=== PATIENT | male | born 1965 | race Native Hawaiian/Other Pacific Islander ===

== ENCOUNTER 2017-04-24 02:22 | Emergency (ER) | payer MEDICAID ==
[~2017-04-24] VITALS: Ht 165.1 cm; Wt 59.0 kg
[2017-04-24 02:28] VITALS: BP 130/92
== END 2017-04-24 04:08 | disposition left against medical advice (07) ==
LOC: EMS 02:23
DX: M79.641 Pain in right hand (principal); F17.210 Nicotine dependence, cigarettes, uncomplicated; Z53.21 Procedure and treatment not carried out due to patient leaving prior to being seen by health care provider

== ENCOUNTER 2020-04-22 14:29 | Emergency (ER) | payer MEDICAID, OTHER ==
[~2020-04-22] VITALS: Ht 172.7 cm; Wt 75.0 kg
[2020-04-22] MEDS: CEPHALEXIN MONOHYDRATE 500 MG CAPSULE PO ONE (15:28)
[2020-04-22] MEDS: SULFAMETHOX/TRIMETH DS 800-160 MG/TABLET PO ONE (15:28)
[2020-04-22] MEDS: PERTUSS(ACELL),DIPH,TET VAC/PF 0.5 ML VIAL IM ONE (15:30)
[2020-04-22 16:09] VITALS: BP 136/68
== END 2020-04-22 16:17 | disposition home or self-care (01) ==
LOC: EMS 14:36
DX: L03.113 Cellulitis of right upper limb (principal); F17.210 Nicotine dependence, cigarettes, uncomplicated; Z59.0 Homelessness
CPT/HCPCS: 90471; 90715

== ENCOUNTER 2020-04-25 14:03 | Emergency (ER) | payer OTHER ==
[~2020-04-25] VITALS: Ht 167.6 cm; Wt 72.7 kg
[2020-04-25 14:11] VITALS: BP 142/76
== END 2020-04-25 15:45 | disposition left against medical advice (07) ==
LOC: EMS 14:03
DX: T63.301A Toxic effect of unspecified spider venom, accidental (unintentional), initial encounter (principal); Z53.21 Procedure and treatment not carried out due to patient leaving prior to being seen by health care provider; X58.XXXA Exposure to other specified factors, initial encounter